=== PATIENT | male | born 1960 | race African-American/Black ===

== ENCOUNTER 2018-03-03 11:15 | Outpatient (CLI) | payer BC | END 2018-03-03 23:59 | disposition home or self-care (01) | LOC: WOU 11:15 | PROVIDERS: ATTEND Specialist | DX: M31.8 Other specified necrotizing vasculopathies (principal); L97.412 Non-pressure chronic ulcer of right heel and midfoot with fat layer exposed | CPT/HCPCS: 11042; 87070-TC; 87075-TC; 87186-TC; A6209 ==

== ENCOUNTER 2018-03-09 15:18 | Outpatient (CLI) | payer BC | END 2018-03-09 23:59 | disposition home or self-care (01) | LOC: LAB 15:18 | PROVIDERS: ATTEND Specialist | DX: M31.8 Other specified necrotizing vasculopathies (principal) | CPT/HCPCS: 36415; 83520; 85025-TC; 85652-TC; 86225; 86235; 86256 ==

== ENCOUNTER 2018-03-10 11:25 | Outpatient (CLI) | payer BC ==
[2018-03-09 16:07] LABS: BASOPHILS # (AUTO) 0.1 /CMM (0.0-0.2); EOSINOPHILS % (AUTO) 5.9 % (0.0-6.0); HEMATOCRIT 21 % (39-51); HEMOGLOBIN 7.3 g/dL (13.5-17.5); LYMPHOCYTES # (AUTO) 2.4 /CMM (0.8-4.8); LYMPHOCYTES % (AUTO) 34.9 % (20.0-44.0); MEAN CORPUSCULAR HGB CONC 35 g/dl (31.0-36.0); MEAN CORPUSCULAR VOLUME 91 fL (80-96); MONOCYTES # (AUTO) 0.9 /CMM (0.1-1.30); MONOCYTES % (AUTO) 13.8 % (2.0-12.0); NEUTROPHILS # (AUTO) 3.1 /CMM (1.8-8.9); NEUTROPHILS % (AUTO) 44.4 % (43.0-81.0); PLATELET COUNT (AUTO) 270 /CMM (150-450); RED BLOOD CELL COUNT(AUTO) 2.27 MIL/uL (4.5-6.0); WHITE BLOOD COUNT (AUTO) 6.9 K/uL (4.3-11.0)
[2018-03-11 12:09] LABS: *ANCANTIMYELOPEROXIDASE (MPO) <9.0 U/mL (0.0-9.0); *ANCANTIPROTEINASE 3 (PR-3) AB <3.5 U/mL (0.0-3.5)
[2018-03-11 14:15] LABS: *ANCA ATYPICAL p-ANCA <1:20 titer (Neg:<1:20); *ANCA CYTOPLASMIC (C-ANCA) <1:20 titer (Neg:<1:20); *ANCA PERINUCLEAR (P-ANCA) <1:20 titer (Neg:<1:20)
[2018-03-11 18:11] LABS: *ANA ANTI-CENTROMERE B AB <0.2 AI (0.0-0.9); *ANA ANTI-DNA(DS) AB, QN 1 IU/mL (0-9); *ANA ANTI-JO-1 <0.2 AI (0.0-0.9); *ANA ANTICHROMATIN ANTIBODY <0.2 AI (0.0-0.9); *ANA RNP ANTIBODIES <0.2 AI (0.0-0.9); *ANA SJOGREN'S ANTI-SS-A <0.2 AI (0.0-0.9); *ANA SJOGREN'S ANTI-SS-B <0.2 AI (0.0-0.9); *ANAANTI-SCLERODERMA-70 AB <0.2 AI (0.0-0.9); *ANASMITH AB <0.2 AI (0.0-0.9)
== END 2018-03-10 23:59 | disposition home or self-care (01) ==
LOC: WOU 11:25
PROVIDERS: ATTEND Specialist
DX: M31.8 Other specified necrotizing vasculopathies (principal); D57.1 Sickle-cell disease without crisis; L97.412 Non-pressure chronic ulcer of right heel and midfoot with fat layer exposed
CPT/HCPCS: 11042; 36415; 83520; 85025-TC; 85652-TC; 86140-TC; 86225; 86235; 86256; A6209; A6402; J3490

== ENCOUNTER 2018-03-17 11:10 | Outpatient (CLI) | payer BC | END 2018-03-17 23:59 | disposition home or self-care (01) | LOC: WOU 11:10 | PROVIDERS: ATTEND Specialist | DX: M31.8 Other specified necrotizing vasculopathies (principal); D57.1 Sickle-cell disease without crisis; Z82.49 Family history of ischemic heart disease and other diseases of the circulatory system; L97.412 Non-pressure chronic ulcer of right heel and midfoot with fat layer exposed | CPT/HCPCS: 11042; A6402; Z7610 ==

== ENCOUNTER 2018-03-24 11:40 | Outpatient (CLI) | payer BC | END 2018-03-24 23:59 | disposition home or self-care (01) | LOC: WOU 11:40 | PROVIDERS: ATTEND Specialist | DX: M31.8 Other specified necrotizing vasculopathies (principal); D57.1 Sickle-cell disease without crisis; S91.301A Unspecified open wound, right foot, initial encounter; X58.XXXA Exposure to other specified factors, initial encounter; Y92.89 Other specified places as the place of occurrence of the external cause | CPT/HCPCS: 11042; A6402 ==

== ENCOUNTER 2018-03-31 12:00 | Outpatient (CLI) | payer BC | END 2018-03-31 23:59 | disposition home or self-care (01) | LOC: WOU 12:00 | PROVIDERS: ATTEND Specialist | DX: M31.8 Other specified necrotizing vasculopathies (principal); D57.1 Sickle-cell disease without crisis | CPT/HCPCS: A6402; G0463 ==

== ENCOUNTER 2018-04-21 13:30 | Outpatient (CLI) | payer BC | END 2018-04-21 23:59 | disposition home or self-care (01) | LOC: WOU 13:30 | PROVIDERS: ATTEND Specialist | DX: Z09 Encounter for follow-up examination after completed treatment for conditions other than malignant neoplasm (principal); D57.1 Sickle-cell disease without crisis; L84 Corns and callosities | CPT/HCPCS: G0463 ==

== ENCOUNTER 2019-01-07 08:32 | Inpatient (IN) | payer BC ==
[~2019-01-07] VITALS: Ht 170.2 cm; Wt 59.0 kg
--- NOTE | 2019-01-07 08:45 | NUR ---
EKG AT BEDSIDE
--- NOTE | 2019-01-07 08:45 | NUR ---
PT BIB FAMILY C/O SOB AND CHEST PAIN STARTED YESTERDAY MORNING HX SICKLE ANEMIA, ON ANTIBIOTIC TX PER PT. PT ON GENERALIZED BODY PAIN. PT AAOX4, SOB NOTED O2 @ 89% ON ROOM AIR, PT ON 2 L N/C O2 AT 95%. IV LINE ESTABLISHED 20G LAC. PT CONNECTED TO THE MONITOR AND POX
[2019-01-07] MEDS ORDERED: IV NS 0.9% 1,000 ML BAG IV ONE (09:00)
[2019-01-07 09:07] LABS: BASOPHILS # (AUTO) 0.3 /CMM (0.0-0.2); EOSINOPHILS % (AUTO) 0.3 % (0.0-6.0); HEMATOCRIT 22 % (39-51); HEMOGLOBIN 7.5 g/dL (13.5-17.5); LYMPHOCYTES % (AUTO) 21.5 % (20.0-44.0); MEAN CORPUSCULAR HGB CONC 34 g/dl (31.0-36.0); MEAN CORPUSCULAR VOLUME 94 fL (80-96); MONOCYTES # (AUTO) 2.4 /CMM (0.1-1.30); MONOCYTES % (AUTO) 17.3 % (2.0-12.0); NEUTROPHILS # (AUTO) 8.2 /CMM (1.8-8.9); NEUTROPHILS % (AUTO) 58.9 % (43.0-81.0); PLATELET COUNT (AUTO) 113 /CMM (150-450); RED BLOOD CELL COUNT(AUTO) 2.36 MIL/uL (4.5-6.0); WHITE BLOOD COUNT (AUTO) 13.9 K/uL (4.3-11.0)
[2019-01-07] MEDS ORDERED: HYDROMORPHONE 1 MG/1 ML DISP.SYRIN ONE ×2 (09:09→09:54)
[2019-01-07 09:13] LABS: CALCIUM, SERUM 9.2 mg/dL (8.5-10.1); CREATININE 0.8 mg/dL (0.6-1.3); POTASSIUM 3.8 mmol/L (3.5-5.1)
--- NOTE | 2019-01-07 09:17 | NUR ---
0.5 MG HYDROMORPHONE NOT GIVEN D/T PATIENT'S REQUEST. ORDERED 1 MG HYDROMORPHONE, GIVEN IVP LAC 20G
[2019-01-07 09:19] LABS: ALBUMIN 3.6 g/dL (3.4-5.0); BILIRUBIN,TOTAL 4.4 mg/dL (0.2-1.0); TOTAL PROTEIN, SERUM 8.3 g/dL (6.4-8.2)
[2019-01-07] MEDS ORDERED: HYDROMORPHONE 1 MG/1 ML DISP.SYRIN IV ONE ×6 (09:30→16:00)
--- NOTE | 2019-01-07 09:49 | NUR ---
XRAY AT BEDSIDE
[2019-01-07 09:51] LABS: BAND % (MANUAL) 10 % (0.0-5.0); LYMPHOCYTES % (MANUAL) 18 % (16-48); METAMYELOCYTES % 1 % (0-0); MONOCYTES % (MANUAL) 11 % (0-11.0); MYELOCYTES % 1 % (0-0); NEUTROPHILS % (MANUAL) 58 (42-76); REACTIVE LYMPHOCYTES 1 % (0-0)
[2019-01-07] MEDS ORDERED: KETOROLAC TROMETHAMINE INJ 30 MG/ML VIAL IV ONE (10:00)
[2019-01-07] MEDS ORDERED: KETOROLAC TROMETHAMINE INJ 30 MG/ML VIAL ONE (10:00)
--- NOTE | 2019-01-07 10:16 | NUR ---
NURSE SHERRY CALLED FOR M/S BED.
[2019-01-07] MEDS ORDERED: FOLI0.8T PO (10:19)
--- NOTE | 2019-01-07 10:28 | NUR ---
CALLED [facility] FOR PANNEL CALL.
[2019-01-07] MEDS ORDERED: LEVOFLOXACIN (750 MG) 750 MG TABLET PO ONE (10:30)
[2019-01-07] MEDS ORDERED: LEVOFLOXACIN (750 MG) 750 MG TABLET PO SCH (10:30)
--- NOTE | 2019-01-07 10:40 | NUR ---
REPORT GIVEN TO RUBENS SCOTT
[2019-01-07] MEDS ORDERED: LEVOFLOXACIN (750 MG) 750 MG TABLET ONE (10:45)
[2019-01-07] MEDS ORDERED: HYDROCODONE/APAP 5/325MG 1 EACH TABLET PO PRN (11:30)
[2019-01-07] MEDS ORDERED: diphenhydrAMINE HCL ELIX 25 MG/10 ML UDC PO PRN (11:30)
[2019-01-07] MEDS ORDERED: ZOLPIDEM TARTRATE 5 MG TABLET PO PRN (11:30)
[2019-01-07] MEDS ORDERED: HYDROMORPHONE INJ 2 MG/ML DISP.SYRIN IV PRN (11:30)
[2019-01-07] MEDS ORDERED: MAG HYDROX/AL HYDROX/SIMETH 30 ML UDC PO PRN (11:30)
[2019-01-07] MEDS ORDERED: MAGNESIUM HYDROXIDE 30 ML UDC PO PRN (11:30)
--- NOTE | 2019-01-07 11:30 | NUR ---
MS HVAC SHEET METAL INSTALLER NOTE: PATIENT ARRIVED WITH 2 FAMILY MEMBERS AND STAFF VIA [facility] UNIT. AWAKE, ALERT AND ORIENTED X4. PAIN REPORTED ASSOCIATED WITH CURRENT SICKLE CELL CRISIS. AWARE OF PAIN MANAGEMENT AND PROCEDURES. NO SHORTNESS OF BREATH NOTED, NOT IN DISTRESS AT THE MOMENT. COOPERATIVE AND PLEASANT. WITH IV LINE AT LEFT AC G20, SITE PATENT. DRESSING CLEAN AND DRY. TOLERATING CONT. O2 VIA NC AT 2LPM WITH SATURATIO Addendum: 01/07/19 at 1942 by CORTEZ KOENIG RN INCOMPLETE CHARTING
--- NOTE | 2019-01-07 11:30 | NUR ---
MS FIRE ALARM DISPATCHER NOTE: PATIENT ARRIVED WITH 2 FAMILY MEMBERS AND STAFF VIA [facility] TO UNIT. AWAKE, ALERT AND ORIENTED X4. PAIN REPORTED ASSOCIATED WITH CURRENT SICKLE CELL CRISIS. AWARE OF PAIN MANAGEMENT AND PROCEDURES. NO SHORTNESS OF BREATH NOTED, NOT IN DISTRESS AT THE MOMENT. COOPERATIVE AND PLEASANT. WITH IV LINE AT LEFT AC G20, SITE PATENT. DRESSING CLEAN AND DRY. TOLERATING CONT. O2 VIA NC AT 2LPM WITH SATURATION OF 98%. ORIENTED TO UNIT, ASSESSMENT WAS MADE, BELONGING FORM SIGNED. PATIENT REFUSED SKIN CHECK STATING THAT "HIS SKIN IS INTACT" AND WITH NO SKIN ISSUES AT THE MOMENT. CALL LIGHT IN REACH, BED LOW, LOCKED AND AT SEMI-BERNAL'S POSITION. WILL CONTINUE TO MONITOR.
--- NOTE | 2019-01-07 11:32 | NUR ---
PT TRANSFERRED TO ROOM 109 IN STABLE CONDITION
[2019-01-07] MEDS: IV NS 0.9% 1,000 ML IV PRN (12:26)
[2019-01-07 16:00] VITALS: BP 108/78
[2019-01-07] MEDS ORDERED: KETOROLAC TROMETHAMINE INJ 30 MG/ML VIAL IM PRN (16:00)
[2019-01-07] MEDS: ONDANSETRON HCL/PF 4 MG/2 ML VIAL IVP PRN ×2 (16:05→22:09)
[2019-01-07 17:02] LABS: APPEARANCE,URINE SL CLOUDY (CLEAR); BILIRUBIN,URINE SMALL (NEGATIVE); BLOOD, URINE LARGE Ery/uL (NEGATIVE); COLOR,URINE AMBER (YELLOW); KETONES,URINE NEGATIVE (NEGATIVE); LEUKOCYTE ESTERASE ,URINE NEGATIVE (NEGATIVE); NITRITE, URINE NEGATIVE (NEGATIVE); PH,URINE 5.5 (5.0-8.0); PROTEIN,URINE 100 mg/dl (NEGATIVE); UGLUCOSE NEGATIVE (NEGATIVE)
--- NOTE | 2019-01-07 17:26 | NUR ---
RN NOTE: RECEIVED A VERBAL ORDER FROM JUANITO CONNER REGARDING THE CHANGE ON THE PATIENT'S PAIN MEDICATION AND ACUITY TO TELEMETRY. ORDER NOTED AND CARRIED OUT. PRIMARY NURSE MADE AWARE.
[2019-01-07] MEDS ORDERED: HYDROMORPHONE 1 MG/1 ML DISP.SYRIN IV PRN ×2 (17:30)
[2019-01-07 18:06] LABS: BACTERIA,URINE 1+ /HPF (None Seen); URINE AMORPHOUS PHOSPHATES Moderate /HPF (None Seen); WBC,URINE NONE SEEN /HPF (0-3)
--- NOTE | 2019-01-07 19:00 | NUR ---
RACE BOARD ATTENDANT CLOSING NOTE PATIENT IN BED AWAKE, ALERT AND ORIENTED X4. PAIN REPORTED ASSOCIATED WITH CURRENT SICKLE CELL CRISIS. AWARE OF PAIN MANAGEMENT AND PROCEDURES. NO PAIN MEDICATION REQUIRED AT THE MOMENT. NO SHORTNESS OF BREATH NOTED, NOT IN DISTRESS AT THE MOMENT. COOPERATIVE AND PLEASANT. WITH IV LINE AT LEFT AC G20, SITE PATENT. DRESSING CLEAN AND DRY. TOLERATING CONT. O2 VIA NC AT 2LPM. NEW IV SITE TO BE STARTED FOR IV INFUSION OF NS @ 100ML/HR. CALL LIGHT IN REACH, BED LOW, LOCKED AND AT SEMI-BERNAL'S POSITION. AWAITING LAB RESULTS. WILL ENDORSE TO ONCOMING NURSE FOR CONTINUITY OF CARE.
--- NOTE | 2019-01-07 19:15 | NUR ---
SEWER PIPE LAYER OPENING NOTES RECEIVED PATIENT IN BED AWAKE, A/OX4. AT BEDSIDE. ON TELE MONITOR SINUS RHYTHM WITH HR 98. ON OXYGEN 3L VIA NC, TOLERATING WELL, NO SOB OR RESPIRATORY DISTRESS NOTED. PT STATED HE HAS GENERALIZED PAIN 3-4/10 AND REQUESTING FOR PAIN MEDS. WILL ADMINISTER PRN PAIN MEDS. IV SITE LEFT AC G20, SITE FLUSHING AND PATENT. IVF RUNNING ORDERED, NO INFILTRATION NOTED. SAFETY MEASURES IN PLACE; CALL LIGHT WITHIN REACH, BED LOW, LOCKED AND IN LOWEST POSITION, HOB ELEVATED. WILL CONT TO MONITOR PT CLOSELY.
[2019-01-07 20:00] VITALS: BP 127/67
--- NOTE | 2019-01-07 22:59 | NUR ---
TOOL MAKER APPRENTICE NOTES PAGED MD REGARDING PT CONDITION VERY LETHARGIC WITH PIN POINT PUPILS. MD ORDERED NARCAN 0.4MG VIA IV. CALLED AFTER HOURS PHARMACY. AWAITING FOR VERIFICATION.
[2019-01-07] MEDS ORDERED: NALOXONE HCL 0.4 MG/ML AMPUL IM STA (23:00)
[2019-01-07] MEDS: NALOXONE HCL 0.4 MG/ML AMPUL IV STA ×2 (23:12→23:50)
--- NOTE | 2019-01-07 23:17 | NUR ---
PRODUCTION OPERATIONS INSPECTOR NOTES AT 2206: FOUND PATIENT SLEEPING WITH VOMIT NOTED ON CHEST. PT ABLE TO WAKE UP VIA TOUCH AND SAY FULL NAME. ASKED PT IF HE IS NAUSEOUS, STATED "YES". PRN ZOFRAN GIVEN VIA IV. ON TELE MONITOR ST WITH HR 120'S. CALLED AND MADE AWARE. AT 2209: PATIENT VERY LETHARGIC. PAGED MD VIA [employer] EXCHANGE. AT 2230: MD MADE AWARE OF PT CHANGE OF STATUS; VITAL SIGNS: BP 118/54, HR 130'S, TEMP 99.6, RR 19, O2SAT 95% ON 3L. ORDERED STAT CHEST XRAY. WILL ATTEND TO ORDERS.
--- NOTE | 2019-01-07 23:18 | NUR ---
ASPHALT SMOOTHER NOTES PATIENT MORE AWAKE, A/OX3. IV NARCAN ALREADY WITHDRAWN FROM VIAL, HOWEVER, PATIENT REFUSING MEDICATION. WILL CONT TO MONITOR PT CLOSELY.
[2019-01-08] VITALS: BP 123/68
--- NOTE | 2019-01-08 00:16 | NUR ---
RIVET SORTER NOTES PATIENT'S UPDATED ON PATIENT'S CHANGE OF CONDITION VIA PHONE CALL. PT'S STATED "CAN YOU RECOMMEND TO THE DOCTOR IF HE COULD JUST DISCONTINUE DILAUDID AND THE TORADOL BE ROUND THE CLOCK?" WILL MAKE THE MD AWARE.
--- NOTE | 2019-01-08 00:29 | NUR ---
SAP DATA ARCHITECT NOTES PATIENT TEMP 102 VIA AXILLARY, PT WARM TO TOUCH, HR 120'S. PRN TYLENOL GIVEN. COOLING MEASURES IN PLACE. WILL CONT TO MONITOR PT CLOSELY.
[2019-01-08] MEDS: ACETAMINOPHEN 325 MG TABLET PO PRN (00:30)
--- NOTE | 2019-01-08 01:58 | NUR ---
WESTERN TACK ASSEMBLY LINE WORKER NOTES PAGED MD AND MADE AWARE OF AFTER HOUR PHARMACIST AND 'S RECOMMENDATION TO DISCONTINUE PT'S DILAUDID 1MG IV Q1H. MD ORDERED TO D/C DILAUDID. WILL ATTEND TO MD ORDERS.
--- NOTE | 2019-01-08 03:49 | NUR ---
ELECTRICAL WORKER NOTES PATIENT COMPLAINING OF CHEST, BILATERAL HIP AND LOWER BACK PAIN. STATED HE WANTS TORADOL 30MG IM TO BE CHANGED TO IV ROUTE. MD MADE AWARE AND ORDERED TO CHANGE TORADOL 30MG Q6H IV. WILL ATTEND TO MD ORDER.
[2019-01-08] MEDS: KETOROLAC TROMETHAMINE INJ 30 MG/ML VIAL IV PRN ×4 (03:55→22:36)
[2019-01-08 04:00] VITALS: BP 121/79
[2019-01-08] MEDS: IV NS 0.9% 1,000 ML IV PRN (04:57)
--- NOTE | 2019-01-08 07:15 | NUR ---
SIX SIGMA BLACK TRAINER CLOSING NOTES PATIENT SLEEPING IN BED, BUT EASY TO AROUSE. PT A/OX4. ON TELE MONITOR SINUS TACHY WITH HR 106. PT AFEBRILE LAST TEMP 98.4. ON OXYGEN 4L VIA NC, TOLERATING WELL, NO SOB OR RESPIRATORY DISTRESS NOTED. NOT C/O ANY PAIN AT THE MOMENT. IV SITES LEFT AC G20 AND RIGHT FA G24, BOTH FLUSHING AND PATENT. IVF RUNNING ORDERED, NO INFILTRATION NOTED. SAFETY MEASURES IN PLACE; CALL LIGHT WITHIN REACH, BED LOW, LOCKED AND IN LOWEST POSITION, HOB ELEVATED. LAB PERSONNEL, PEDRO PABLO MADE AWARE THAT PT IS TAKING ANTIBIOTIC PER REQUEST. ENDORSED TO AM RN FOR RIVAS.
[2019-01-08 07:20] LABS: BASOPHILS # (AUTO) 0.4 /CMM (0.0-0.2); BASOPHILS % (AUTO) 1.7 % (0.0-2.0); EOSINOPHILS % (AUTO) 0.1 % (0.0-6.0); LYMPHOCYTES # (AUTO) 3.7 /CMM (0.8-4.8); MEAN CORPUSCULAR HGB CONC 36 g/dl (31.0-36.0); MEAN CORPUSCULAR VOLUME 89 fL (80-96); MONOCYTES # (AUTO) 2.6 /CMM (0.1-1.30); MONOCYTES % (AUTO) 11.7 % (2.0-12.0); NEUTROPHILS # (AUTO) 15.3 /CMM (1.8-8.9); NEUTROPHILS % (AUTO) 69.5 % (43.0-81.0); PLATELET COUNT (AUTO) 95 /CMM (150-450)
[2019-01-08 07:27] LABS: RED BLOOD CELL COUNT(AUTO) 1.84 MIL/uL (4.5-6.0)
[2019-01-08 07:30] LABS: HEMATOCRIT 16 % (39-51); HEMOGLOBIN 5.9 g/dL (13.5-17.5)
[2019-01-08] MEDS ORDERED: PANTOPRAZOLE 40 MG TABLET.DR PO SCH (07:30)
[2019-01-08 07:35] LABS: ALBUMIN 3.1 g/dL (3.4-5.0); BILIRUBIN,TOTAL 4.1 mg/dL (0.2-1.0); CREATININE 1.7 mg/dL (0.6-1.3); MAGNESIUM 1.7 mg/dL (1.8-2.4); PHOSPHORUS 3.5 mg/dL (2.5-4.9); POTASSIUM 3.9 mmol/L (3.5-5.1); TOTAL PROTEIN, SERUM 7.4 g/dL (6.4-8.2)
--- NOTE | 2019-01-08 07:36 | NUR ---
BOTTOM HOOP DRIVER OPENING NOTES RECEIVED PT LYING ON BED,ALERT/ORIENTED X4.ON TELE HR IS [address] NC 2-3LPM O2 CONTINUOUSLY,NO SOB AND ACUTE DISTRESS NOTED.NO PAIN NOTED FOR NOW.IV LINE IS ON LEFT AC F20,SL AND RIGHT FA G24 WITH NS @100ML/HR IS RUNNING.IV SITE IS CLEAN,DRY AND INTACT.NO INFILTRATION NOTED.SAFETY IS MAINTAINED AT ALL TIMES,CALL LIGHT IS WITHIN REACH.BED IS IN LOW POSITION AND LOCKED.WILL CONTINUE TO MONITOR THE PT CLOSELY.
[2019-01-08 08:00] VITALS: BP 130/52
[2019-01-08 08:09] LABS: THYROID STIMULATING HORMONE 0.974 uIU/mL (0.358-3.74)
[2019-01-08] MEDS ORDERED: IV NS 0.9% 1,000 ML IV PRN (08:56)
[2019-01-08] MEDS: FOLIC ACID 1 MG TABLET PO SCH (09:06)
[2019-01-08 09:13] LABS: BAND % (MANUAL) 9 % (0.0-5.0); LYMPHOCYTES % (MANUAL) 20 % (16-48); MONOCYTES % (MANUAL) 8 % (0-11.0); NEUTROPHILS % (MANUAL) 63 (42-76)
[2019-01-08] MEDS ORDERED: HYDROMORPHONE INJ 0.5 MG/0.5 ML SYRINGE IV PRN (10:30)
[2019-01-08] MEDS: LEVOFLOXACIN 750 MG /D5W 150ML 750 MG in PREMIX 1 EA IV SCH (10:34)
[2019-01-08] MEDS: PANTOPRAZOLE 40 MG VIAL IV SCH (10:42)
[2019-01-08] MEDS: ONDANSETRON HCL/PF 4 MG/2 ML VIAL IVP PRN ×4 (10:42→22:37)
[2019-01-08] MEDS: MULTIVITAMINS,THERAGRAN 1 UDTAB TABLET PO SCH (10:43)
[2019-01-08 12:00] VITALS: BP 132/75
[2019-01-08] MEDS ORDERED: Magnesium 1GM/D5W 100ML PREMIX 100 ML IV SCH (13:00)
--- NOTE | 2019-01-08 14:15 | NUR ---
BEHAVIORAL SCIENCE CHAIR NOTES PT TRANSFER REPORT GIVEN TO RUBENS BRENNER.
[2019-01-08] MEDS: HYDROMORPHONE 1 MG/1 ML DISP.SYRIN IV PRN ×3 (15:33→22:35)
[2019-01-08 16:00] VITALS: BP 134/76
[2019-01-08 16:33] LABS: BASOPHILS # (AUTO) 0.1 /CMM (0.0-0.2); BASOPHILS % (AUTO) 0.5 % (0.0-2.0); LYMPHOCYTES # (AUTO) 2.3 /CMM (0.8-4.8); LYMPHOCYTES % (AUTO) 9.5 % (20.0-44.0); MEAN CORPUSCULAR HGB CONC 37 g/dl (31.0-36.0); MEAN CORPUSCULAR VOLUME 88 fL (80-96); MONOCYTES # (AUTO) 1.6 /CMM (0.1-1.30); MONOCYTES % (AUTO) 6.7 % (2.0-12.0); NEUTROPHILS # (AUTO) 19.9 /CMM (1.8-8.9); NEUTROPHILS % (AUTO) 82.3 % (43.0-81.0); PLATELET COUNT (AUTO) 113 /CMM (150-450); WHITE BLOOD COUNT (AUTO) 24.2 K/uL (4.3-11.0)
[2019-01-08 16:43] LABS: HEMATOCRIT 16 % (39-51); HEMOGLOBIN 5.9 g/dL (13.5-17.5); RED BLOOD CELL COUNT(AUTO) 1.85 MIL/uL (4.5-6.0)
[2019-01-08 17:20] LABS: BAND % (MANUAL) 15 % (0.0-5.0); LYMPHOCYTES % (MANUAL) 13 % (16-48); MONOCYTES % (MANUAL) 7 % (0-11.0); NEUTROPHILS % (MANUAL) 65 (42-76)
--- NOTE | 2019-01-08 19:30 | NUR ---
RN OPENING NOTES RECEIVED PATIENT AWAKE IN BED AT BEDSIDE.A/OX4. NO SIGNS OF DISTRESS OR DISCOMFORT. BREATHING EVEN AND UNLABORED. ON TELE MONITORING WITH ST 102 NOTED. ON 4LPM O2 VIA NC, TOLERATING WELL. PT STATES HE HAS GENERALIZED PAIN 3/10 AND PAIN IS TOLERABLE AT THIS TIME. IV ACCESS IN LAC AND RFA WITH NS INFUSING, PATENT AND INTACT, NO SIGNS OF REDNESS OR INFILTRATION. BED IN LOW LOCKED POSITION WITH SIDE RAILS X3. HOB ELEVATED. PATIENT ADVISED TO USE TO CALL LIGHT FOR ASSISTANCE. CALL LIGHT WITHIN REACH. WILL CONTINUE TO MONITOR.
[2019-01-08 20:00] VITALS: BP 144/68
--- NOTE | 2019-01-08 22:35 | NUR ---
RN NOTES ADMINISTERED DILAUDID 1MG. TORADOL 30MG AND ZOFRAN 4MG ORDERED AT PATIENT REQUEST FOR GENERALIZED PAIN 5/10 AND NAUSEA. VSS. WILL CONTINUE TO MONITOR
[2019-01-09] VITALS (18 sets, daily range): BP systolic 113–176; BP diastolic 65–98
[2019-01-09] MEDS: KETOROLAC TROMETHAMINE INJ 30 MG/ML VIAL IV PRN ×3 (05:34→19:33)
[2019-01-09] MEDS: ONDANSETRON HCL/PF 4 MG/2 ML VIAL IVP PRN ×3 (05:35→19:34)
[2019-01-09] MEDS: HYDROMORPHONE 1 MG/1 ML DISP.SYRIN IV PRN ×3 (05:35→19:33)
--- NOTE | 2019-01-09 05:35 | NUR ---
RN NOTES ADMINISTERED DILAUDID 1MG. TORADOL 30MG AND ZOFRAN 4MG ORDERED AT PATIENT REQUEST FOR GENERALIZED PAIN 05/26. VSS. WILL CONTINUE TO MONITOR.
[2019-01-09 07:16] LABS: BASOPHILS # (AUTO) 0.2 /CMM (0.0-0.2); BASOPHILS % (AUTO) 0.8 % (0.0-2.0); EOSINOPHILS % (AUTO) 0.6 % (0.0-6.0); LYMPHOCYTES # (AUTO) 0.7 /CMM (0.8-4.8); LYMPHOCYTES % (AUTO) 3.5 % (20.0-44.0); MEAN CORPUSCULAR HGB CONC 37 g/dl (31.0-36.0); MEAN CORPUSCULAR VOLUME 88 fL (80-96); MONOCYTES # (AUTO) 2.1 /CMM (0.1-1.30); MONOCYTES % (AUTO) 10.5 % (2.0-12.0); NEUTROPHILS # (AUTO) 17.2 /CMM (1.8-8.9); NEUTROPHILS % (AUTO) 84.6 % (43.0-81.0); PLATELET COUNT (AUTO) 117 /CMM (150-450); WHITE BLOOD COUNT (AUTO) 20.3 K/uL (4.3-11.0)
[2019-01-09 07:31] LABS: CALCIUM, SERUM 8.2 mg/dL (8.5-10.1); CREATININE 1.4 mg/dL (0.6-1.3); MAGNESIUM 2.1 mg/dL (1.8-2.4); POTASSIUM 3.8 mmol/L (3.5-5.1)
[2019-01-09 07:42] LABS: HEMATOCRIT 15 % (39-51); HEMOGLOBIN 5.7 g/dL (13.5-17.5); RED BLOOD CELL COUNT(AUTO) 1.74 MIL/uL (4.5-6.0)
--- NOTE | 2019-01-09 07:45 | NUR ---
RN CLOSING NOTES PATIENT AWAKE IN BED. A/OX4. NO SIGNS OF DISTRESS OR DISCOMFORT. BREATHING EVEN AND UNLABORED. ON TELE MONITORING WITH ST 101 NOTED. ON 4LPM O2 VIA NC, TOLERATING WELL. PT STATES GENERALIZED PAIN IS 2/10 AND TOLERABLE AT THIS TIME. IV ACCESS IN RFA AND LAC PATENT AND INTACT, NO SIGNS OF REDNESS OR INFILTRATION. PATIENT CURRENTLY RECEIVED BLOOD TRANSFUSION AND TOLERATING WELL WITH NO S/S OF REACTION. ALL NEEDS MET. NO SIGNIFICANT CHANGES THROUGH THEN NIGHT BED IN LOW LOCKED POSITION WITH SIDE RAILS X3. HOB ELEVATED. PATIENT ADVISED TO USE TO CALL LIGHT FOR ASSISTANCE. CALL LIGHT WITHIN REACH. ENDORSED TO AM SHIFT FOR RIVAS.
--- NOTE | 2019-01-09 07:46 | NUR ---
RN OPENING NOTES PATIENT AWAKE IN BED. A/OX4. NO SIGNS OF DISTRESS OR DISCOMFORT. BREATHING EVEN AND UNLABORED. ON TELE MONITORING WITH SR 96. ON 4LPM O2 VIA NC, TOLERATING WELL. PT STATES GENERALIZED PAIN IS 2/10 AND TOLERABLE AT THIS TIME. IV ACCESS IN RFA AND LAC PATENT AND INTACT, NO SIGNS OF REDNESS OR INFILTRATION. PATIENT CURRENTLY RECEIVED BLOOD TRANSFUSION AND TOLERATING WELL WITH NO S/S OF REACTION. ALL NEEDS ATTENDED. BED IN LOW LOCKED POSITION WITH SIDE RAILS X2. HOB ELEVATED. PATIENT ADVISED TO USE TO CALL LIGHT FOR ASSISTANCE. CALL LIGHT WITHIN REACH. WILL CONTINUE TO MONITOR ACCORDINGLY
[2019-01-09 08:18] LABS: BAND % (MANUAL) 7 % (0.0-5.0); LYMPHOCYTES % (MANUAL) 8 % (16-48); MONOCYTES % (MANUAL) 6 % (0-11.0); NEUTROPHILS % (MANUAL) 79 (42-76)
[2019-01-09] MEDS: FOLIC ACID 1 MG TABLET PO SCH (10:04)
[2019-01-09] MEDS: MULTIVITAMINS,THERAGRAN 1 UDTAB TABLET PO SCH (10:05)
[2019-01-09] MEDS: PANTOPRAZOLE 40 MG VIAL IV SCH (10:05)
[2019-01-09] MEDS: LEVOFLOXACIN 750 MG /D5W 150ML 750 MG in PREMIX 1 EA IV SCH (10:11)
--- NOTE | 2019-01-09 10:20 | NUR ---
1 UNIT PRBC TRANSFUSION ENDED. PATIENT STABLE. VSS. NO ADVERSE REACTION NOTED. WILL MONIOTR ACCORDINGLY
--- NOTE | 2019-01-09 11:00 | NUR ---
rn notes JUANITO Rizvi at bedside, discussed POC to patient. per JUANITO Rizvi, give 3 more units of PRBC for today. orders noted and will carryout.
--- NOTE | 2019-01-09 11:40 | NUR ---
WARNING ANALYST NOTE: RECEIVED ENDORSEMENT FROM RUBENS QURESHI REGARDING PATIENT. CURRENTLY FOR 3 MORE PRBC TRANSFUSIONS. PATIENT IN STABLE CONDITION. NOT IN DISTRESS, NO PAIN NOTED. WILL CONTINUE TO MONITOR.
[2019-01-09 11:54] LABS: HEMOGLOBIN 6.6 g/dL (13.5-17.5)
--- NOTE | 2019-01-09 12:12 | NUR ---
rn notes 3 units PRBC ordered. verified blood bank that order was in.
--- NOTE | 2019-01-09 12:30 | NUR ---
early learning teacher notes Patient in stable condtion. endorsed to RUBENS Holloway.
--- NOTE | 2019-01-09 13:45 | NUR ---
TABITHA ART NOTE: TRANSFUSION OF 1 UNIT OF PRBC STARTED. VERIFICATION DONE WITH RUBENS GORE. Addendum: 01/09/19 at 1415 by CORTEZ KOENIG RN STARTED TRANSFUSION AT 70ML/HR
--- NOTE | 2019-01-09 14:00 | NUR ---
SEAWEED HARVESTER NOTE: VITAL SIGNS RECHECKED. PATIENT WITH NO REPORTS OF ADVERSE REACTIONS. INCREASED RATE OF TRANSFUSION TO 100ML/HR
--- NOTE | 2019-01-09 16:16 | NUR ---
HIDE EXAMINER NOTE: SPOKE TO DR. DANNY FRAZIER WITH REGARDS TO PATIENT'S TOLERANCE TO CURRENT BLOOD TRANSFUSION. RELAYED PATIENTS CONCERNS TO MD. MD ORDERED 40MG IV LASIX ONCE AFTER TRANSFUSION. NOTED AND CARRIED OUT.
--- NOTE | 2019-01-09 16:23 | NUR ---
BUSINESS OFFICE DIRECTOR NOTE: H/H AND CXR ORDERED BY OMAIRA MCNULTY FOR PATIENT AFTER BLOOD TRANSFUSION. NOTED AND CARRIED OUT.
--- NOTE | 2019-01-09 16:26 | NUR ---
REAM CUTTER NOTE: TRANSFUSION COMPLETED. PATIENT NOTED WITH SHORTNESS OF BREATH AND INCREASED BP FROM BEFORE AT 171/88. NO ALLERGIC REACTIONS NOTED. PATIENT ALERT, AWAKE AND ORIENTED X4 AND WAITING ON LASIX 40MG TO BE ADMINISTERED.
[2019-01-09] MEDS ORDERED: FUROSEMIDE 40 MG/4 ML VIAL IV ONE (17:00)
[2019-01-09 19:13] LABS: HEMOGLOBIN 8.5 g/dL (13.5-17.5)
--- NOTE | 2019-01-09 19:15 | NUR ---
OVEN HEATER HELPER NOTE PATIENT REPORT GIVEN BEDSIDE. PATIENT IN BED SITTING UP WITH 3L NC SATURATING AT 95%. BREATHING EVEN AND UNLABORED. PATIENT TOLERATING WELL NO S/S OF RESP DISTRESS. PATIENT IV SITES PATENT AND INTACT NO S/S OF INFILTRATION OR INFECTION. PATIENT HR ST ON THE MONITOR. PATIENT DENIES CHEST PAIN/SOB. PATIENT FINISHED BLOOD TRANSFUSION NO S/S OF ADVERSE REACTION. GOALS AND POC DISCUSSED WITH PATIENT. PATIENT VERBALIZE UNDERSTANDING. RN WILL CONTINUE TO MONITOR FOR CHANGES. SAFETY PRECAUTIONS IN PLACE. BED IN LOWEST LOCKED POSITION SIDE RAILS X2, CALL LIGHT IN HAND.
--- NOTE | 2019-01-09 19:20 | NUR ---
MICA BUILDER CLOSING NOTE PATIENT IN BED AWAKE, ALERT AND ORIENTED X4. NO PAIN REPORTED AT THE MOMENT. ON CONT. O2 VIA NC @ 6PLM, TOLERATING WELL. CURRENT IV SITES PATENT. DRESSINGS CLEAN AND DRY. 2 UNITS OF PRBC TRANSFUSED ON SHIFT. PATIENT HAD NO ALLERGIC AND ADVERSE REACTIONS TO BOTH TRANSFUSION BUT EXPERIENCED LABORED BREATHING WITH SOME SHORTNESS OF BREATH WITH DIAPHORESIS. OMAIRA MCNULTY BLOCKER HEATED METAL FORMS MADE AWARE. AWAITING CXR AND H/H RESULTS REGARDING LATEST TRANSFUSION. BLOCKER HEATED METAL FORMS AND PATIENT MADE AWARE OF BLOOD BANK NOTIFICATION OF COMPATIBLE BLOOD NOT BEING AVAILABLE YET FROM [facility] DUE TO UNAVAILABILITY AT THE MOMENT. BOTH ACKNOWLEDGED. CALL LIGHT IN REACH, BED LOW, LOCKED AND AT SEMI-BERNAL'S POSITION. AWAITING LAB RESULTS. WILL ENDORSE TO ONCOMING NURSE FOR CONTINUITY OF CARE.
[2019-01-10] VITALS: BP 142/84
[2019-01-10] MEDS ORDERED: FUROSEMIDE 20 MG/2 ML VIAL IV SCH (03:00)
--- NOTE | 2019-01-10 03:00 | NUR ---
IMAGE SCIENTIST NOTE PATIENT C/O FEELING CONGESTION IN THE CHEST, COURSE CRACKLES NOTED IN RLL. MD UMANA NOTIFIED AND ORDERED 20 MG OF LASIX
[2019-01-10] MEDS: HYDROMORPHONE 1 MG/1 ML DISP.SYRIN IV PRN ×2 (03:04→08:54)
[2019-01-10] MEDS: KETOROLAC TROMETHAMINE INJ 30 MG/ML VIAL IV PRN ×2 (03:04→08:54)
[2019-01-10] MEDS: ONDANSETRON HCL/PF 4 MG/2 ML VIAL IVP PRN ×2 (03:04→08:54)
[2019-01-10 04:00] VITALS: BP 133/72
[2019-01-10 06:23] LABS: BASOPHILS # (AUTO) 0.1 /CMM (0.0-0.2); BASOPHILS % (AUTO) 0.5 % (0.0-2.0); EOSINOPHILS % (AUTO) 0.3 % (0.0-6.0); HEMOGLOBIN 7.1 g/dL (13.5-17.5); LYMPHOCYTES # (AUTO) 0.6 /CMM (0.8-4.8); LYMPHOCYTES % (AUTO) 3.6 % (20.0-44.0); MEAN CORPUSCULAR HGB CONC 36 g/dl (31.0-36.0); MEAN CORPUSCULAR VOLUME 90 fL (80-96); MONOCYTES # (AUTO) 2.3 /CMM (0.1-1.30); MONOCYTES % (AUTO) 12.6 % (2.0-12.0); NEUTROPHILS # (AUTO) 14.9 /CMM (1.8-8.9); PLATELET COUNT (AUTO) 122 /CMM (150-450); RED BLOOD CELL COUNT(AUTO) 2.15 MIL/uL (4.5-6.0); WHITE BLOOD COUNT (AUTO) 17.9 K/uL (4.3-11.0)
[2019-01-10 06:39] LABS: CALCIUM, SERUM 8.6 mg/dL (8.5-10.1); CREATININE 1.2 mg/dL (0.6-1.3); POTASSIUM 3.3 mmol/L (3.5-5.1)
[2019-01-10 06:57] LABS: HEMATOCRIT 19 % (39-51)
--- NOTE | 2019-01-10 07:15 | NUR ---
RN INITIAL NOTE PATIENT IN BED, ASLEEP. AT BEDSIDE. ALERT AND ORIENTED X4. ON 4L NC, NO SOB NOTED. ON TELE MONITOR, ST. HAS A LEFT HAND #20 AND RIGHT FA #24. PER NOC SHIFT, NS AT 100ML/HR HAS BEEN HELD DUE TO PATIENT'S HAVING CRACKLE LUNG SOUNDS. WAS GIVEN X1 LASIX OVERNIGHT. PATIENT'S HCT IS CRITICALLY LOW AT 19. WILL LET MD KNOW. PATIENT'S BLOOD TRANSFUSION PENDING FOR ANOTHER 1 UNIT OF PRBC DUE TO UNAVAILABILITY AT BLOOD BANK. NO COMPLAINS OF ANY PAIN NOR SOB AT THIS TIME. BED LOCKED AND IN LOWEST POSITION. CALL LIGHT WITHIN REACH. WILL CONTINUE TO MONITOR Addendum: 01/10/19 at 0932 by PAULA BRANCH RN JUANITO CONNER AWARE ABOUT THE HCT
[2019-01-10 08:00] VITALS: BP 137/75
[2019-01-10] MEDS ORDERED: POTASSIUM CHLORIDE 20 MEQ TAB.PRT.SR PO ONE ×2 (08:00→17:00)
[2019-01-10] MEDS: MULTIVITAMINS,THERAGRAN 1 UDTAB TABLET PO SCH (08:28)
[2019-01-10] MEDS: FOLIC ACID 1 MG TABLET PO SCH (08:28)
[2019-01-10] MEDS: PANTOPRAZOLE 40 MG VIAL IV SCH (09:07)
[2019-01-10 09:46] LABS: NEUTROPHILS % (MANUAL) 75 (42-76)
[2019-01-10 09:47] LABS: BAND % (MANUAL) 3 % (0.0-5.0); LYMPHOCYTES % (MANUAL) 12 % (16-48); MONOCYTES % (MANUAL) 10 % (0-11.0)
[2019-01-10] MEDS ORDERED: LEVALBUTEROL HCL NEB 1.25 MG/0.5 ML VIAL.NEB NEB PRN (10:30)
[2019-01-10] MEDS: LEVOFLOXACIN 750 MG /D5W 150ML 750 MG in PREMIX 1 EA IV SCH (11:11)
--- NOTE | 2019-01-10 11:33 | NUR ---
RN NOTE PER DALILA, CHANGE NS FROM 100ML/HR TO ONLY 50ML/HR. FISH FROG OR OYSTER FARMER ALSO ORDERED CPT AND ALBUTEROL FOR THE PATIENT. RT MADE AWARE
[2019-01-10 12:00] VITALS: BP 122/73
--- NOTE | 2019-01-10 14:49 | NUR ---
RN NOTE PATIENT REQUESTED TO BE SEEN BY THE TEST CASE DEVELOPER. DALILA IS AWARE, ORDERED PHYSICIAN CONSULT WITH DR MACK. DR MACK IS AWARE
[2019-01-10 16:00] VITALS: BP 146/83
--- NOTE | 2019-01-10 16:36 | NUR ---
RN NOTE CONTACTED DR FARR FOR THE HEMATOLOGY CONSULTATION. PER MD, SHE IS COMING TODAY
[2019-01-10 16:56] LABS: B-TYPE NATRIURETIC PEPTIDE 5015 PG/ML (0-125)
[2019-01-10] MEDS ORDERED: BUMETANIDE INJ 0.25 MG/ML VIAL IV ONE (17:00)
[2019-01-10] MEDS ORDERED: CEFTRIAXONE 1 G in IV D5W 50 ML IV SCH (17:00)
--- NOTE | 2019-01-10 18:26 | NUR ---
RN NOTE MADE DR FARR AWARE ABOUT THE SITUATION REGARDING THE BLOOD BANK. PER MD, DO NOT GIVE THE LASIX SHE ORDERED UNTIL AFTER THE 1 UNIT OF PRBC
[2019-01-10] MEDS: ENOXAPARIN SODIUM 30 MG/0.3 ML DISP.SYRIN SQ SCH ×2 (18:30→18:34)
[2019-01-10] MEDS ORDERED: FUROSEMIDE 20 MG/2 ML VIAL IV ONE (18:30)
--- NOTE | 2019-01-10 18:51 | NUR ---
RN NOTE PATIENT REFUSED LOVENOX. EXPLAINED THAT IT IS A LOW DOSE FOR A PROPHYLACTIC AND IT IS 12 HOURS BEFORE HIS PROCEDURE TOMORROW. PATIENT STILL REFUSED. DR FARR MADE AWARE
[2019-01-10] MEDS: CEFEPIME 1 GM in IV D5W 50 ML IV SCH (18:55)
--- NOTE | 2019-01-10 19:30 | NUR ---
RN CLOSING NOTE PATIENT IN BED, AWAKE AND ALERT. FAMILY AT BEDSIDE. NO COMPLAINS OF ANY PAIN AT THIS TIME. ALL MEDS GIVEN. HAS A RIGHT FA #24 AND LEFT HAND #20. PATIENT REFUSED TO HAVE NS AT 50 ML/HR. MADE MD AWARE. PATIENT WAS GIVEN PAIN MEDS THIS AM REQUESTED. K HAS BEEN REPLACED. HCT OF 19, MD AWARE AND PROCAL OF 6.20 MD AWARE WELL. NNO. DR FARR AND DR MAKC HAS SEEN THE PATIENT. ORDERS FOLLOWS: US GUIDED THORACENTESIS OF THE RIGHT LUNG TOMORROW 01/11, CONSENT SIGNED. VQ SCAN, CONSENT SIGNED 1 MORE UNIT OF PRBC PER DR FARR - PLEASE GIVEN 1X DOSE OF LASIX POST TRANSFUSION (PER BLOOD BANK, POSSIBLE TO HAVE AVAILABILITY OF THE BLOOD TONIGHT OR TOMORROW MORNING) CT OF THE CHEST WITHOUT CONTRAST DUPLEX VENOUS OF BILATERAL LOWER EXT ECHOCARDIOGRAM
[2019-01-10 20:00] VITALS: BP 146/82
[2019-01-11] VITALS: BP 140/80
[2019-01-11] MEDS: ONDANSETRON HCL/PF 4 MG/2 ML VIAL IVP PRN ×4 (00:07→19:22)
[2019-01-11] MEDS: HYDROMORPHONE 1 MG/1 ML DISP.SYRIN IV PRN ×5 (00:08→23:04)
[2019-01-11 04:00] VITALS: BP 143/82
[2019-01-11] MEDS: CEFEPIME 1 GM in IV D5W 50 ML IV SCH ×2 (05:09→17:25)
[2019-01-11 06:19] LABS: BASOPHILS # (AUTO) 0.1 /CMM (0.0-0.2); BASOPHILS % (AUTO) 0.5 % (0.0-2.0); EOSINOPHILS % (AUTO) 0.6 % (0.0-6.0); HEMOGLOBIN 7.1 g/dL (13.5-17.5); LYMPHOCYTES # (AUTO) 0.8 /CMM (0.8-4.8); LYMPHOCYTES % (AUTO) 5.2 % (20.0-44.0); MEAN CORPUSCULAR HGB CONC 36 g/dl (31.0-36.0); MEAN CORPUSCULAR VOLUME 95 fL (80-96); MONOCYTES # (AUTO) 2.3 /CMM (0.1-1.30); MONOCYTES % (AUTO) 14.5 % (2.0-12.0); NEUTROPHILS # (AUTO) 12.7 /CMM (1.8-8.9); NEUTROPHILS % (AUTO) 79.2 % (43.0-81.0); PLATELET COUNT (AUTO) 171 /CMM (150-450); RED BLOOD CELL COUNT(AUTO) 2.08 MIL/uL (4.5-6.0)
[2019-01-11 06:26] LABS: HEMATOCRIT 20 % (39-51)
[2019-01-11 06:28] LABS: CALCIUM, SERUM 8.5 mg/dL (8.5-10.1); MAGNESIUM 1.6 mg/dL (1.8-2.4); PHOSPHORUS 3.1 mg/dL (2.5-4.9); POTASSIUM 3.3 mmol/L (3.5-5.1)
--- NOTE | 2019-01-11 07:18 | NUR ---
AIR DUCT MECHANIC OPENING NOTE RECEIVED REPORT FROM [facility] SHIFT NURSE. PT AWAKE IN BED, ALERT AND ORIENTED X 4, ON 02 VIA NC 5L/MIN, SATURATING WELL, RESPIRATIONS EVEN AND UNLABORED, NO SIGNS OF RESPIRATORY DISTRESS NOTED. ON MUSEUM PREPARATOR SINUS RHYTHM HR 85. IV SITE ON RIGHT FOREARM G24 INTACT, PATENT WITH HEP LOCK IN PLACE. IV SITE ON LEFT HAND G20 INTACT,PATENT, WITH HEP LOCK IN PLACE. BED IN LOW POSITION, LOCKED, CALL LIGHT WITHIN REACH. INTRODUCED SELF TO PT AND DISCUSSED PLAN OF CARE.
--- NOTE | 2019-01-11 07:22 | NUR ---
SPIRAL MACHINE OPERATOR CLOSING NOTES PATIENT IN BED WITH NO SIGNS OF ANY SOB. TOLERATING NASAL CANULA WITH NO DISTRESS. PAIN MAGMT BEING MANAGED WITH DILAUDID ORDERED. AT BEDSIDE. ALL NEEDS MET. ALL SAFETY PRECAUTIONS APPLIED. ENDORSED PATIENT TO MORNING SHIFT NURSE TO CONTINUE CARE.
[2019-01-11 07:55] LABS: EOSINOPHILS % (MANUAL) 1 % (0-4); LYMPHOCYTES % (MANUAL) 4 % (16-48); MONOCYTES % (MANUAL) 11 % (0-11.0); NEUTROPHILS % (MANUAL) 84 (42-76)
[2019-01-11 08:00] VITALS: BP 135/72
--- NOTE | 2019-01-11 08:00 | NUR ---
RECEIVED CALL FROM LAB WITH CORRECTED WBC CRITICAL RESULT: 30.4 SPOKE WITH DERRICK
[2019-01-11 08:01] LABS: WHITE BLOOD COUNT (AUTO) 30.4 K/uL (4.3-11.0)
[2019-01-11] MEDS: FOLIC ACID 1 MG TABLET PO SCH (08:34)
[2019-01-11] MEDS: MULTIVITAMINS,THERAGRAN 1 UDTAB TABLET PO SCH (08:34)
[2019-01-11] MEDS ORDERED: FUROSEMIDE 20 MG/2 ML VIAL IV ONE (10:00)
[2019-01-11] MEDS ORDERED: POTASSIUM CHLORIDE 20 MEQ TAB.PRT.SR PO SCH (10:00)
[2019-01-11] MEDS: PANTOPRAZOLE 40 MG VIAL IV SCH (10:28)
[2019-01-11] MEDS: Magnesium 1GM/D5W 100ML PREMIX 100 ML IV SCH ×2 (10:29→11:42)
[2019-01-11] MEDS ORDERED: POTASSIUM CL. PREMIX PERIPHER. 50 ML IV ONE (11:00)
--- NOTE | 2019-01-11 11:00 | NUR ---
received phone call from lab- no units available for pt's bloodtype. [facility] to send to [place], will take 3-5 business days. patient notified and gave consent.
[2019-01-11] MEDS: LEVOFLOXACIN 750 MG /D5W 150ML 750 MG in PREMIX 1 EA IV SCH (11:42)
[2019-01-11 12:00] VITALS: BP 144/83
[2019-01-11] MEDS: POTASSIUM CL. PREMIX PERIPHER. 50 ML IV SCH ×4 (12:41→15:53)
[2019-01-11 16:00] VITALS: BP 153/85
--- NOTE | 2019-01-11 18:54 | NUR ---
CV RN CLOSING NOTE PT AWAKE IN BED, ALERT AND ORIENTED X 4, ON 02 VIA NC 5L/MIN, SATURATING WELL, RESPIRATIONS EVEN AND UNLABORED, NO SIGNS OF RESPIRATORY DISTRESS NOTED. ON TELE MONITOR SINUS RHYTHM HR 60. IV SITE ON RIGHT FOREARM G22 INTACT, PATENT. BED IN LOW POSITION, LOCKED, CALL LIGHT WITHIN REACH. PROVIDED SAFETY AND COMFORT TO PT THROUGHOUT SHIFT, ALL DUE MEDS GIVEN. WILL ENDORSE TO NOC SHIFT NURSE.
--- NOTE | 2019-01-11 19:38 | NUR ---
FIELD TRAINER NOTE PT IN BED SITTING UP, A/O X 4, NO SOB NOTED. PT C/O PAIN ALL OVER 8/10 AND ASKING FOR ZOFRAN WITH IT FOR NAUSEA. DILAUDID 1MG FOR PAIN AND ZOFRAN 4MG IVP GIVEN FOR NAUSEA. SL INTACT AND PATENT. ON TELE MONITOR SR WITH OCCASIONAL PVC'S HR 102. FAMILY AT BED SIDE. SIDE RAILS UP X 2 AND CALL LIGHT WITHIN REACH. CONTINUE TO MONITOR HIM.
[2019-01-11 20:00] VITALS: BP 145/70
[2019-01-11] MEDS: ENOXAPARIN SODIUM 30 MG/0.3 ML DISP.SYRIN SQ SCH (20:59)
[2019-01-12] VITALS: BP 112/66
[2019-01-12] MEDS: ONDANSETRON HCL/PF 4 MG/2 ML VIAL IVP PRN ×2 (01:35→21:24)
[2019-01-12] MEDS: ACETAMINOPHEN 325 MG TABLET PO PRN ×3 (01:35→21:01)
--- NOTE | 2019-01-12 01:46 | NUR ---
GLUE SPRAYER NOTE PT IS RUNNING LOW GRADE FEVER 100 ORALLY, TYLENOL 650MG PO GIVEN FOR FEVER AND ALSO GIVEN ZOFRAN 4 MG IV PUSH FOR NAUSEA.
--- NOTE | 2019-01-12 03:29 | NUR ---
MAINTENANCE PIPEFITTER NOTE TEMP 98.3 ORALLY. ALSO LINENS CHANGED. DENIES PAIN. ALL NEEDS ATTENDED.
[2019-01-12 04:00] VITALS: BP 136/77
[2019-01-12] MEDS: CEFEPIME 1 GM in IV D5W 50 ML IV SCH ×2 (04:58→18:29)
[2019-01-12 06:37] LABS: MAGNESIUM 1.9 mg/dL (1.8-2.4); PHOSPHORUS 3.7 mg/dL (2.5-4.9)
--- NOTE | 2019-01-12 06:51 | NUR ---
PRINT PROJECT MANAGER NOTE PT IN BED ASLEEP, EASILY AROUSABLE. NO DISTRESS OR DISCOMFORT NOTED. DENIES PAIN. PT WAS MEDICATED FOR PAIN DURING THE NIGHT WITH EFFECTIVENESS. ALL NEEDS ATTENDED. ON TELE SR 83 WITH OCCASIONAL PVC. SIDE RAILS UP X 2 AND CALL LIGHT WITHIN REACH. WILL ENDORSE TO DAY SHIFT NURSE FOR CONTINUE TO CARE.
--- NOTE | 2019-01-12 07:30 | NUR ---
RN NOTES RECEIVED PATIENT PACING ON THE ROOM, A/0X4, ABLE TO MAKE NEEDS KNOWN. NOT ON ANY FORM OF DISTRESS. ON ROOM AIR, NO SOB NOTED BUT VERBALIZES NEEDS FOR OXYGEN SUPPORT AT THIS TIME. NO COMPLAINTS OF PAIN. SINUS RHYTHM ON THE MONITOR WITH HR ON THE 90S. IV SITE ON THE RFA G [address] AND INTACT, SALINE LOCK AT THIS TIME PATIENT REFUSED IVF DURING THE NIGHT PER REPORT, WILL OFFER LATER. PATIENT ENCOURAGE TO VERBALIZE FEELINGS AND NEEDS. PLAN OF CARE DISCUSSED. SAFETY MEASURES OBSERVED AND MAINTAINED. BED LOW AND LOCK POSITION. CALL LIGHT WITHIN REACH, WILL CONTINUE TO MONITOR PATIENT AND ANTICIPATE NEEDS
[2019-01-12 08:00] VITALS: BP 147/79
[2019-01-12 08:21] LABS: CALCIUM, SERUM 8.4 mg/dL (8.5-10.1); POTASSIUM 3.1 mmol/L (3.5-5.1)
[2019-01-12 08:24] LABS: BASOPHILS # (AUTO) 0.1 /CMM (0.0-0.2); BASOPHILS % (AUTO) 0.6 % (0.0-2.0); EOSINOPHILS % (AUTO) 1.1 % (0.0-6.0); HEMATOCRIT 22 % (39-51); HEMOGLOBIN 7.9 g/dL (13.5-17.5); LYMPHOCYTES # (AUTO) 2.2 /CMM (0.8-4.8); LYMPHOCYTES % (AUTO) 14.5 % (20.0-44.0); MEAN CORPUSCULAR HGB CONC 35 g/dl (31.0-36.0); MEAN CORPUSCULAR VOLUME 95 fL (80-96); MONOCYTES # (AUTO) 2.5 /CMM (0.1-1.30); MONOCYTES % (AUTO) 16.1 % (2.0-12.0); NEUTROPHILS # (AUTO) 10.4 /CMM (1.8-8.9); NEUTROPHILS % (AUTO) 67.7 % (43.0-81.0); PLATELET COUNT (AUTO) 190 /CMM (150-450); RED BLOOD CELL COUNT(AUTO) 2.37 MIL/uL (4.5-6.0); WHITE BLOOD COUNT (AUTO) 15.4 K/uL (4.3-11.0)
[2019-01-12] MEDS: MULTIVITAMINS,THERAGRAN 1 UDTAB TABLET PO SCH (09:02)
[2019-01-12] MEDS: PANTOPRAZOLE 40 MG TABLET.DR PO SCH (09:02)
[2019-01-12] MEDS: FOLIC ACID 1 MG TABLET PO SCH (09:02)
[2019-01-12 09:05] LABS: EOSINOPHILS % (MANUAL) 2 % (0-4); LYMPHOCYTES % (MANUAL) 6 % (16-48); MONOCYTES % (MANUAL) 18 % (0-11.0); NEUTROPHILS % (MANUAL) 74 (42-76)
[2019-01-12] MEDS: POTASSIUM CHLORIDE 20 MEQ TAB.PRT.SR PO SCH ×3 (10:30→11:30)
--- NOTE | 2019-01-12 11:00 | NUR ---
RN NOTES PATIENT REFUSED POTASSIUM TABLET DUE TO COMPLAINTS THAT HE IS UNABLE TO SWALLOW THE MEDICATION
[2019-01-12] MEDS: LEVOFLOXACIN 750 MG /D5W 150ML 750 MG in PREMIX 1 EA IV SCH (11:03)
[2019-01-12 12:00] VITALS: BP 131/81
[2019-01-12] MEDS ORDERED: POTASSIUM CL. PREMIX PERIPHER. 50 ML IV SCH ×2 (12:30)
--- NOTE | 2019-01-12 13:00 | NUR ---
RN NOTES CALLED PHARMACY AND ASKED IF PATIENT'S PHARMACY CAN BE PREPARED WITH LIDOCAINE. PHARMACY AGREED
[2019-01-12] MEDS: Potassium Chloride 10 MEQ, LIDOCAINE HCL/PF 1% 1 ML in IV D5W 50 ML IV SCH ×4 (15:03→22:13)
[2019-01-12] MEDS: HYDROMORPHONE 1 MG/1 ML DISP.SYRIN IV PRN ×2 (15:15→21:25)
[2019-01-12 16:00] VITALS: BP 142/82
[2019-01-12] MEDS: NYSTATIN (PYXIS) 500,000 UNIT/5 ML ORAL.SUSP PO SCH (18:30)
[2019-01-12] MEDS: FLUCONAZOLE (100 MG) 100 MG TABLET PO SCH (18:43)
--- NOTE | 2019-01-12 19:30 | NUR ---
RN NOTES ENDORSED PATIENT FOR CONTINUITY OF CARE. NOT ON ANY FORM OF DISTRESS. WITH ONGOING CEFEPIME AT THIS TIME. ALL NURSING NEEDS ATTENDED AND MET. SAFETY MEASURES OBSERVED AND MAINTAINED. CALL LIGHT WITHIN REACH
[2019-01-12 20:00] VITALS: BP 129/72
--- NOTE | 2019-01-12 20:30 | NUR ---
HEARING HEALTHCARE PRACTITIONER NOTES RECEIVED REPORT FROM DELONTE RN. PATIENT A/A/O X4, ABLE TO MAKE NEEDS KNOWN. BREATHING EVEN & UNLABORED, TOLERATING O2 @ 3LPM VIA NC. DENIES ANY SOB OR DIFFICULTY BREATHING. ON TELE W/ SINUS TACH, HR LOW 100S. RIGHT FOREARM IV #22 W/ IV ABX INFUSING WELL. PATIENT ALSO REFUSES IVF @ THIS TIME. DENIES ANY PAIN OR DISCOMFORT @ THIS TIME. SAFETY MEASURES IN PLACE W/ SIDE RAILS UP & CALL LIGHT PLACED WITHIN REACH. ABLE TO AMBULATE & MOVE INDEPENDENTLY IN BED BUT INSTRUCTED TO CALL FOR ANY ASSISTANCE. WILL CONTINUE TO MONITOR.
[2019-01-12] MEDS: ENOXAPARIN SODIUM 30 MG/0.3 ML DISP.SYRIN SQ SCH (20:40)
[2019-01-13] VITALS: BP 141/79
[2019-01-13 04:00] VITALS: BP 134/73
[2019-01-13] MEDS: CEFEPIME 1 GM in IV D5W 50 ML IV SCH (05:21)
[2019-01-13] MEDS: ONDANSETRON HCL/PF 4 MG/2 ML VIAL IVP PRN ×3 (05:22→17:54)
[2019-01-13] MEDS: HYDROMORPHONE 1 MG/1 ML DISP.SYRIN IV PRN ×4 (05:22→22:43)
[2019-01-13 06:33] LABS: BASOPHILS # (AUTO) 0.1 /CMM (0.0-0.2); BASOPHILS % (AUTO) 0.5 % (0.0-2.0); HEMATOCRIT 22 % (39-51); HEMOGLOBIN 7.6 g/dL (13.5-17.5); LYMPHOCYTES # (AUTO) 1.8 /CMM (0.8-4.8); LYMPHOCYTES % (AUTO) 12.6 % (20.0-44.0); MEAN CORPUSCULAR HGB CONC 36 g/dl (31.0-36.0); MEAN CORPUSCULAR VOLUME 96 fL (80-96); MONOCYTES # (AUTO) 2.4 /CMM (0.1-1.30); MONOCYTES % (AUTO) 16.6 % (2.0-12.0); NEUTROPHILS % (AUTO) 69.3 % (43.0-81.0); PLATELET COUNT (AUTO) 226 /CMM (150-450); RED BLOOD CELL COUNT(AUTO) 2.25 MIL/uL (4.5-6.0); WHITE BLOOD COUNT (AUTO) 14.5 K/uL (4.3-11.0)
[2019-01-13 07:00] LABS: CALCIUM, SERUM 8.5 mg/dL (8.5-10.1); CREATININE 0.9 mg/dL (0.6-1.3); MAGNESIUM 1.8 mg/dL (1.8-2.4); PHOSPHORUS 3.3 mg/dL (2.5-4.9); POTASSIUM 3.5 mmol/L (3.5-5.1)
--- NOTE | 2019-01-13 07:30 | NUR ---
TELE/RN OPENING NOTES RECEIVED PATIENT IN BED AWAKE, ALERT AND ABLE TO MAKE NEEDS KNOWN. PATIENT IS ALERT AND ORIENTED X4. NO ACUTE DISTRESS AT THIS TIME. RESPIRATION EVEN AND UNLABORED. SKIN IS DRY WARM TO TOUCH. PATIENT ON CONTINUES O2 @ 3LPM VIA NC. ON TELE W/ SINUS TACH, HR LOW 95S. RIGHT FOREARM IV #22G INTACT AND PATENT. FLUSHING WELL. NO S/S OF INFECTION OR INFILTRATION. ALL NEEDS ANTICIPATED. CALL LIGHT WITHIN REACHED. BED LOCKED AND IN LOWEST POSITION. SAFETY MAINTAINED. WILL CONTINUE TO MONITOR CLOSELY.
[2019-01-13 08:00] VITALS: BP 127/76
[2019-01-13] MEDS: NYSTATIN (PYXIS) 500,000 UNIT/5 ML ORAL.SUSP PO SCH ×3 (08:31→17:21)
[2019-01-13] MEDS: FOLIC ACID 1 MG TABLET PO SCH (08:31)
[2019-01-13] MEDS: MULTIVITAMINS,THERAGRAN 1 UDTAB TABLET PO SCH (08:31)
[2019-01-13] MEDS: PANTOPRAZOLE 40 MG TABLET.DR PO SCH (08:31)
[2019-01-13] MEDS: LEVOFLOXACIN 750 MG /D5W 150ML 750 MG in PREMIX 1 EA IV SCH (11:22)
[2019-01-13] MEDS: CEFEPIME 2 GM in IV D5W 100 ML IV SCH ×2 (13:45→21:00)
[2019-01-13 16:00] VITALS: BP 115/80
[2019-01-13] MEDS: FLUCONAZOLE (100 MG) 100 MG TABLET PO SCH (17:21)
--- NOTE | 2019-01-13 18:46 | NUR ---
TELE/RN CLOSING NOTES PATIENT CONTINUES TO REMAIN IN STABLE CONDITION THROUGHOUT THE SHIFT. PROVIDED COMFORT AND SAFETY. PATIENT WAS ABLE TO TOLERATE MEALS AND MEDS WELL. PATIENT ON CONTINUES O2 @ 3LPM VIA NC. IV ACCESS ON RIGHT FOREARM IV #22G INTACT AND PATENT. FLUSHING WELL. NO S/S OF INFECTION OR INFILTRATION. ALL NEEDS ANTICIPATED. CALL LIGHT WITHIN REACHED. BED LOCKED AND IN LOWEST POSITION. SAFETY MAINTAINED. WILL CONTINUE TO MONITOR CLOSELY. ENDORSED TO PM NURSE FOR RIVAS. Addendum: 01/13/19 at 1850 by YOAN DODGE RN TELE/RN CLOSING NOTES PATIENT CONTINUES TO REMAIN IN STABLE CONDITION THROUGHOUT THE SHIFT. PROVIDED COMFORT AND SAFETY. PATIENT WAS ABLE TO TOLERATE MEALS AND MEDS WELL. PATIENT CONTINUES TO REFUSE IVF. EXPLAINED RISK AND BENEFITS. STILL REFUSE X3. PATIENT ON CONTINUES O2 @ 3LPM VIA NC. IV ACCESS ON RIGHT FOREARM IV #22G INTACT AND PATENT. FLUSHING WELL. NO S/S OF INFECTION OR INFILTRATION. ALL NEEDS ANTICIPATED. CALL LIGHT WITHIN REACHED. BED LOCKED AND IN LOWEST POSITION. SAFETY MAINTAINED. WILL CONTINUE TO MONITOR CLOSELY. ENDORSED TO PM NURSE FOR RIVAS.
--- NOTE | 2019-01-13 19:46 | NUR ---
MS RN OPENING NOTE RECEIVED PATIENT IN BED. A/O X4. ON OXYGEN 3L/MIN VIA NASAL CANNULA. RESPIRATIONS ARE EVEN AND UNLABORED. NO S/S SOB NOTED. DENIES PAIN AT THIS TIME. IN NO APPARENT DISTRESS. IV ACCESS IN LFA#22 PATENT AND SALINE LOCKED. BED IS LOW AND LOCKED, BUTADIENE CONVERTOR OPERATOR RIALS UP X2, HOB ELEVATED IN HIGH FOWLERS CALL LIGHT WITHIN REACH. FAMILY AT BEDSIDE. WILL CONTINUE TO MONITOR.
[2019-01-13 20:00] VITALS: BP 117/70
[2019-01-13] MEDS: ENOXAPARIN SODIUM 30 MG/0.3 ML DISP.SYRIN SQ SCH (21:00)
--- NOTE | 2019-01-13 21:08 | NUR ---
MS ART NOTE DID NOT ADMINISTER LOVENOX 30MG D/T LOW H/H. Addendum: 01/13/19 at 2118 by ROBIN ISAAC RN REFUSING IVF, AMBULATORY
--- NOTE | 2019-01-13 22:44 | NUR ---
MS RN NOTE ADMINISTERED PRN DILUADID 1MG FOR PAIN 09/25. WILL CONTINUE TO MONITOR.
[2019-01-14] MEDS: ONDANSETRON HCL/PF 4 MG/2 ML VIAL IVP PRN ×2 (00:01→12:52)
--- NOTE | 2019-01-14 00:01 | NUR ---
MS RN NOTE ADMINISTERED PRN ZOFRAN 4MG PER PATIENT REQUEST FOR PROPHYLAXIS. WILL CONTINUE TO MONITOR
[2019-01-14] MEDS ORDERED: HYDROMORPHONE 1 MG/1 ML DISP.SYRIN IV PRN (02:00)
[2019-01-14] MEDS: HYDROMORPHONE 1 MG/1 ML DISP.SYRIN IV PRN ×2 (02:32→12:52)
--- NOTE | 2019-01-14 03:02 | NUR ---
MS RN NOTE PATIENT DOES NOT WANT TO IVF NS @50ML/HR , STATES BECAUSE HE HAS FLUID OVERLOAD.
[2019-01-14 04:00] VITALS: BP 130/73
[2019-01-14] MEDS: CEFEPIME 2 GM in IV D5W 100 ML IV SCH ×3 (04:28→22:11)
[2019-01-14 05:00] VITALS: BP 130/73
--- NOTE | 2019-01-14 06:33 | NUR ---
MS RN CLOSING NOTE PATIENT IN BED. A/O X4. REMAINS ON OXYGEN 2 -3L/MIN VIA NASAL CANNULA. RESPIRATIONS ARE EVEN AND UNLABORED. NO EPISODES OF SOB NOTED. PAIN MANAGED WITH 1MG DILAUDID, REQUESTING TORADOL. NO DISTRESS NOTED. IV ACCESS MAINTAINED IN LFA#22 PATENT AND SALINE LOCKED, PATIENT REFUSING IVF D/T STATING HE IS IN FLUID OVERLOAD. BED REMAINS LOW AND LOCKED, VACUUM FORMING MACHINE OPERATOR RIALS UP X2, HOB ELEVATED IN 30 DEGREES CALL LIGHT WITHIN REACH. WILL ENDORSE TO NEXT SHIFT.
[2019-01-14 08:00] VITALS: BP 133/76
[2019-01-14 08:30] LABS: BASOPHILS % (AUTO) 0.2 % (0.0-2.0); EOSINOPHILS % (AUTO) 0.7 % (0.0-6.0); HEMATOCRIT 22 % (39-51); HEMOGLOBIN 7.6 g/dL (13.5-17.5); LYMPHOCYTES % (AUTO) 8.1 % (20.0-44.0); MEAN CORPUSCULAR HGB CONC 35 g/dl (31.0-36.0); MEAN CORPUSCULAR VOLUME 94 fL (80-96); MONOCYTES # (AUTO) 2.5 /CMM (0.1-1.30); NEUTROPHILS # (AUTO) 9.3 /CMM (1.8-8.9); PLATELET COUNT (AUTO) 283 /CMM (150-450)
[2019-01-14 09:11] LABS: CALCIUM, SERUM 8.9 mg/dL (8.5-10.1); CREATININE 0.8 mg/dL (0.6-1.3); MAGNESIUM 1.7 mg/dL (1.8-2.4); PHOSPHORUS 3.5 mg/dL (2.5-4.9); POTASSIUM 3.3 mmol/L (3.5-5.1)
[2019-01-14] MEDS: FOLIC ACID 1 MG TABLET PO SCH (09:22)
[2019-01-14] MEDS: PANTOPRAZOLE 40 MG TABLET.DR PO SCH (09:22)
[2019-01-14] MEDS: NYSTATIN (PYXIS) 500,000 UNIT/5 ML ORAL.SUSP PO SCH ×3 (09:22→18:12)
[2019-01-14] MEDS: MULTIVITAMINS,THERAGRAN 1 UDTAB TABLET PO SCH (09:22)
[2019-01-14 09:28] LABS: EOSINOPHILS % (MANUAL) 1 % (0-4); LYMPHOCYTES % (MANUAL) 10 % (16-48); MONOCYTES % (MANUAL) 5 % (0-11.0); NEUTROPHILS % (MANUAL) 84 (42-76)
[2019-01-14] MEDS ORDERED: POTASSIUM CHLORIDE 20 MEQ TAB.PRT.SR PO ONE (10:00)
[2019-01-14] MEDS: Magnesium 1GM/D5W 100ML PREMIX 100 ML IV SCH ×2 (10:48→11:58)
[2019-01-14] MEDS: POTASSIUM CL. PREMIX PERIPHER. 50 ML IV SCH ×4 (11:09→15:08)
--- NOTE | 2019-01-14 11:14 | NUR ---
MS/RN NOTES MEDICATION KDUR PO WAS REFUSED BY PATIENT, PER PATIENT I CANT SWALLOW THOSE PILLS, PATIENT PREFERRED IV ROUTE. SPOKE TO PHARMACY ACCORDING TO THEM THEY WILL CHANGE IT TO IV.
--- NOTE | 2019-01-14 12:48 | NUR ---
MS/RN NOTES SPOKE TO PHARMACY AND VALDO REGARDING THE TRAMADOL ORDER AND PER DR. LYLE IT IS OK TO GIVE. PATIENT CONTINUES TO REMAIN IN STABLE CONDITION. WILL CONTINUE TO MONITOR CLOSELY.
[2019-01-14] MEDS: KETOROLAC TROMETHAMINE INJ 30 MG/ML VIAL IV PRN (12:52)
[2019-01-14] MEDS: LEVOFLOXACIN 750 MG /D5W 150ML 750 MG in PREMIX 1 EA IV SCH (13:30)
[2019-01-14 16:00] VITALS: BP 121/68
[2019-01-14] MEDS: FLUCONAZOLE (100 MG) 100 MG TABLET PO SCH (18:12)
--- NOTE | 2019-01-14 18:31 | NUR ---
TELE/RN CLOSING NOTES PATIENT CONTINUES TO REMAIN IN STABLE CONDITION THROUGHOUT THE SHIFT. PROVIDED COMFORT AND SAFETY. PATIENT WAS ABLE TO TOLERATE MEALS AND MEDS WELL. PATIENT ON CONTINUES O2 @ 3LPM VIA NC. IV ACCESS ON LEFT UPPER ARM IV #22G INTACT AND PATENT. FLUSHING WELL. NO S/S OF INFECTION OR INFILTRATION. ALL NEEDS ANTICIPATED. CALL LIGHT WITHIN REACHED. BED LOCKED AND IN LOWEST POSITION. SAFETY MAINTAINED. WILL CONTINUE TO MONITOR CLOSELY. ENDORSED TO PM NURSE FOR RIVAS.
[2019-01-14 20:00] VITALS: BP 122/71
[2019-01-14] MEDS: ENOXAPARIN SODIUM 30 MG/0.3 ML DISP.SYRIN SQ SCH (21:00)
[2019-01-15] MEDS: HYDROMORPHONE 1 MG/1 ML DISP.SYRIN IV PRN ×3 (01:21→21:12)
[2019-01-15] MEDS: KETOROLAC TROMETHAMINE INJ 30 MG/ML VIAL IV PRN ×4 (01:22→21:13)
[2019-01-15] MEDS: ONDANSETRON HCL/PF 4 MG/2 ML VIAL IVP PRN ×3 (01:22→21:13)
[2019-01-15 02:00] VITALS: BP 141/83
[2019-01-15 04:00] VITALS: BP 142/82
[2019-01-15] MEDS: CEFEPIME 2 GM in IV D5W 100 ML IV SCH ×3 (05:02→21:12)
--- NOTE | 2019-01-15 06:28 | NUR ---
RN NOTES PATIENT IN BED RESTING COMFORTABLY WITH NO DISTRESS NOTED. 02 AT 3LPM VIA NASAL CANNULA TOLERATING WELL. VITAL SIGNS WNL. COMPLAINED OF GENERALIZED PAIN AND NAUSEA. TORADOL AND DILAUDID AND ZOFRAN ADMINISTERED, WITH RELIEF. NO SIGNIFICANT CHANGE OF CONDITION. KEPT CLEAN AND DRY. WILL ENDORSE TO NEXT SHIFT FOR CONTINUITY OF CARE.
[2019-01-15 06:55] LABS: BASOPHILS # (AUTO) 0.1 /CMM (0.0-0.2); BASOPHILS % (AUTO) 0.5 % (0.0-2.0); EOSINOPHILS % (AUTO) 4.7 % (0.0-6.0); HEMATOCRIT 21 % (39-51); HEMOGLOBIN 7.2 g/dL (13.5-17.5); LYMPHOCYTES # (AUTO) 2.1 /CMM (0.8-4.8); LYMPHOCYTES % (AUTO) 19.8 % (20.0-44.0); MEAN CORPUSCULAR HGB CONC 35 g/dl (31.0-36.0); MEAN CORPUSCULAR VOLUME 96 fL (80-96); MONOCYTES # (AUTO) 2.2 /CMM (0.1-1.30); MONOCYTES % (AUTO) 21.4 % (2.0-12.0); NEUTROPHILS # (AUTO) 5.6 /CMM (1.8-8.9); NEUTROPHILS % (AUTO) 53.6 % (43.0-81.0); PLATELET COUNT (AUTO) 315 /CMM (150-450); RED BLOOD CELL COUNT(AUTO) 2.17 MIL/uL (4.5-6.0); WHITE BLOOD COUNT (AUTO) 10.4 K/uL (4.3-11.0)
[2019-01-15 07:33] LABS: CALCIUM, SERUM 8.8 mg/dL (8.5-10.1); MAGNESIUM 2.4 mg/dL (1.8-2.4); PHOSPHORUS 3.8 mg/dL (2.5-4.9); POTASSIUM 3.6 mmol/L (3.5-5.1)
[2019-01-15 08:00] VITALS: BP 143/82
[2019-01-15] MEDS: FOLIC ACID 1 MG TABLET PO SCH (09:50)
[2019-01-15] MEDS: PANTOPRAZOLE 40 MG TABLET.DR PO SCH (09:50)
[2019-01-15] MEDS: NYSTATIN (PYXIS) 500,000 UNIT/5 ML ORAL.SUSP PO SCH ×3 (09:50→17:32)
[2019-01-15] MEDS: MULTIVITAMINS,THERAGRAN 1 UDTAB TABLET PO SCH (09:50)
[2019-01-15] MEDS: LEVOFLOXACIN (750 MG) 750 MG TABLET PO SCH (10:30)
[2019-01-15 12:00] VITALS: BP 122/64
[2019-01-15 16:00] VITALS: BP 139/80
[2019-01-15] MEDS: FLUCONAZOLE (100 MG) 100 MG TABLET PO SCH (17:32)
--- NOTE | 2019-01-15 18:09 | NUR ---
MS RN CLOSING Patient is A/Ox4 with and daughter at bedside. At beginning of shift, patient was on 3L O2. Saturations noted to be 100%, titrated down to 2L O2 via NC, SPO2 95-98%. Denies SOB, no resp distress noted. Does not want to titrate down to 1L. as he "feels ill". on RA patient SPO 91% observed on cont pulse ox. Pain ratings between 2 - 4/10 throughout shift. Refused SCD pumps "not needed". L AC 22G C/D/I, patent. Aseptic technique observed at all times. Call light within reach, patient able to make needs known
[2019-01-15 20:00] VITALS: BP 141/85
[2019-01-15] MEDS ORDERED: HYDROMORPHONE 1 MG/1 ML DISP.SYRIN ONE (20:33)
[2019-01-15] MEDS: ENOXAPARIN SODIUM 30 MG/0.3 ML DISP.SYRIN SQ SCH (21:00)
[2019-01-16 04:00] VITALS: BP 146/82
[2019-01-16] MEDS: CEFEPIME 2 GM in IV D5W 100 ML IV SCH ×2 (05:49→12:57)
[2019-01-16 07:03] LABS: BASOPHILS # (AUTO) 0.1 /CMM (0.0-0.2); EOSINOPHILS % (AUTO) 5.5 % (0.0-6.0); HEMOGLOBIN 7.1 g/dL (13.5-17.5); LYMPHOCYTES # (AUTO) 1.7 /CMM (0.8-4.8); LYMPHOCYTES % (AUTO) 18.5 % (20.0-44.0); MEAN CORPUSCULAR HGB CONC 35 g/dl (31.0-36.0); MEAN CORPUSCULAR VOLUME 95 fL (80-96); MONOCYTES # (AUTO) 1.7 /CMM (0.1-1.30); MONOCYTES % (AUTO) 18.7 % (2.0-12.0); NEUTROPHILS # (AUTO) 5.2 /CMM (1.8-8.9); NEUTROPHILS % (AUTO) 56.3 % (43.0-81.0); PLATELET COUNT (AUTO) 415 /CMM (150-450); WHITE BLOOD COUNT (AUTO) 9.3 K/uL (4.3-11.0)
[2019-01-16 07:18] LABS: CREATININE 0.9 mg/dL (0.6-1.3); PHOSPHORUS 3.7 mg/dL (2.5-4.9); POTASSIUM 3.2 mmol/L (3.5-5.1)
[2019-01-16] MEDS: POTASSIUM CHLORIDE 20 MEQ TAB.PRT.SR PO ONE ×2 (07:30→07:59)
[2019-01-16 07:53] LABS: BAND % (MANUAL) 7 % (0.0-5.0); EOSINOPHILS % (MANUAL) 5 % (0-4); LYMPHOCYTES % (MANUAL) 14 % (16-48); MONOCYTES % (MANUAL) 18 % (0-11.0); NEUTROPHILS % (MANUAL) 56 (42-76)
[2019-01-16] MEDS: ONDANSETRON HCL/PF 4 MG/2 ML VIAL IVP PRN (07:57)
[2019-01-16] MEDS: HYDROMORPHONE 1 MG/1 ML DISP.SYRIN IV PRN (07:58)
[2019-01-16] MEDS: KETOROLAC TROMETHAMINE INJ 30 MG/ML VIAL IV PRN (07:58)
[2019-01-16 08:00] VITALS: BP 130/79
[2019-01-16 08:01] LABS: HEMATOCRIT 20 % (39-51)
[2019-01-16] MEDS: FOLIC ACID 1 MG TABLET PO SCH (08:02)
[2019-01-16] MEDS: LEVOFLOXACIN (750 MG) 750 MG TABLET PO SCH (08:02)
[2019-01-16] MEDS: MULTIVITAMINS,THERAGRAN 1 UDTAB TABLET PO SCH (08:02)
[2019-01-16] MEDS: PANTOPRAZOLE 40 MG TABLET.DR PO SCH (08:02)
[2019-01-16] MEDS: NYSTATIN (PYXIS) 500,000 UNIT/5 ML ORAL.SUSP PO SCH ×2 (08:02→13:00)
[2019-01-16] MEDS ORDERED: POTASSIUM CL. PREMIX PERIPHER. 50 ML IV SCH (09:00)
[2019-01-16] MEDS: Potassium Chloride 10 MEQ, LIDOCAINE HCL/PF 1% 1 ML in IV D5W 50 ML IV SCH ×4 (10:12→12:53)
[2019-01-16] MEDS ORDERED: IV NS 0.9% 1,000 ML IV ONE (10:30)
[2019-01-16 16:00] VITALS: BP 129/79
--- NOTE | 2019-01-16 18:17 | NUR ---
MS RN DC NOTE Received DC order to home. Patient being taken home by . Wishes to ambulate out of the unit. On room air, SPO2 94%. No SOB noted. IV removed intact. Remains A/Ox4. Belongings checklist signed. No wound pics to be taken. F/U with social science analyst for work excuse, number provided. All consult notes, xray results provided.
--- NOTE | 2019-01-17 15:37 | NUR ---
SS consult requested by Dr.Keino Carter on 01/16. JONEL contacted pt.'s cell [phone] to discuss [employer] application. JONEL emailed ([employer]) Social Security Disability Insurance online application link and ([employer]) [place] Unemployment application link to as requested.JONEL also mailed out a hard copy SSDI application to pt. Pt. expressed gratitude.
== END 2019-01-16 18:18 | disposition home or self-care (01) | DRG 811 ==
LOC: ER 08:36 → MEDSG1 10:45 → TELE1 17:26 → MEDSG1 01-13 09:56
PROVIDERS: ADMIT Nurse Practitioner Acute Care; ATTEND Internal Medicine
PROC: 30233P1 Transfusion of Nonautologous Frozen Red Cells into Peripheral Vein, Percutaneous Approach (ICD-10-PCS; principal; 2019-01-09)
DX: D57.811 Other sickle-cell disorders with acute chest syndrome (principal); N17.0 Acute kidney failure with tubular necrosis; J18.9 Pneumonia, unspecified organism; J96.01 Acute respiratory failure with hypoxia; E44.1 Mild protein-calorie malnutrition; B37.0 Candidal stomatitis; N39.0 Urinary tract infection, site not specified; J90 Pleural effusion, not elsewhere classified; J98.11 Atelectasis; D72.829 Elevated white blood cell count, unspecified; I27.20 Pulmonary hypertension, unspecified; E87.70 Fluid overload, unspecified; Z68.20 Body mass index [BMI] 20.0-20.9, adult; E88.09 Other disorders of plasma-protein metabolism, not elsewhere classified; E83.42 Hypomagnesemia; E87.6 Hypokalemia; Z88.2 Allergy status to sulfonamides
CPT/HCPCS: 36415; 71045-TC; 71250-TC; 76942-TC; 78582; 80048-TC; 80053-TC; 80061-TC; 80076-TC; 81000-TC; 82550-TC; 83010; 83615-TC; 83735-TC; 83880; 84100-TC; 84443-TC; 84484-TC; 85025-TC; 85027-TC; 85045-TC; 85730-TC; 86850-TC; 86921-TC; 87040-TC; 87081-TC; 87086-TC; 87207-TC; 93307-TC; 93970-TC; 94668-TC; 94799-TC; 97116-TC; 97530-TC; A4216; A9540; A9567; C9113; G0378; J0692; J0696; J1170; J1650; J1885; J1940; J1956; J2310; J2405; J3475; J3480; J3490; J7030; J7040; J7042; J7050; J7060; P9016-BL